=== PATIENT | male | born 1985 | race Caucasian/White ===

== ENCOUNTER 2017-10-01 22:05 | Emergency (ER) | payer BC ==
[2017-10-01] MEDS ORDERED: Proparacaine 0.5% Opth 15 ML BOT ONE (22:10)
[2017-10-01] MEDS ORDERED: Fluorescein Opthalmic Strip ONE (22:12)
[2017-10-01] MEDS ORDERED: Cyclopentolate 1% Opth Drop 2 ML BOT ONE (22:53)
== END 2017-10-01 22:59 | disposition home or self-care (01) ==
LOC: SCSER 22:05
DX: H16.133 Photokeratitis, bilateral (principal); F17.210 Nicotine dependence, cigarettes, uncomplicated; Z79.899 Other long term (current) drug therapy
CPT/HCPCS: 99283